=== PATIENT | male | born 1955 | race Two or more races ===

== ENCOUNTER 2018-08-26 13:32 | Emergency (ER) | payer MEDICARE, MEDICAID ==
[~2018-08-26] VITALS: Ht 180.3 cm; Wt 73.0 kg
[2018-08-26 14:19] LABS: CULTURE INDICATED? YES; MICROSCOPIC INDICATED
[2018-08-26] MEDS ORDERED: WYCILLIN 1,200,000 UNITS/2 ML IM ONE (15:30)
[2018-08-26] MEDS ORDERED: BICILLIN-LA 1,200,000 UNITS/2 ML IM ONE (16:00)
[2018-08-26 16:18] VITALS: BP 121/80
== END 2018-08-26 16:20 | disposition home or self-care (01) ==
LOC: ED 15:11
DX: N30.00 Acute cystitis without hematuria (principal)
CPT/HCPCS: 81001; 87077; 87086; 96372; 99284; J0561; 87186

== ENCOUNTER 2020-05-13 00:10 | Emergency (ER) | payer MEDICARE, MEDICAID ==
[~2020-05-13] VITALS: Ht 182.9 cm; Wt 84.0 kg
[2020-05-13] MEDS ORDERED: ASPIRIN 81 MG TABLET CHEW PO ONE (00:30)
[2020-05-13] MEDS ORDERED: ASPIRIN 81 MG TABLET CHEW ONE (00:39)
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
[2020-05-13 00:51] LABS: BASOPHILS # (AUTO) 0.04 x10^3/uL (0-0.1); BASOPHILS % (AUTO) 0 % (0-1); EOSINOPHILS # (AUTO) 0.18 x10^3/uL (0-0.4); EOSINOPHILS % (AUTO) 2 % (1-7); LYMPHOCYTES # (AUTO) 2.28 x10^3/uL (1-3.4); LYMPHOCYTES % (AUTO) 24 % (22-44); MD NO; MEAN CORPUSCULAR HGB CONC 32.8 g/dL (33.2-36.2); MEAN CORPUSCULAR VOLUME 91.7 fL (81-97); MEAN PLATELET VOLUME 8.3 fL (7.4-10.4); MONOCYTES # (AUTO) 0.69 x10^3/uL (0.2-0.8); MONOCYTES % (AUTO) 7 % (2-9); NEUTROPHILS % (AUTO) 66 % (42-75); PLATELET COUNT 264 x10^3/uL (130-400); RED BLOOD COUNT 5.19 x10^6/uL (4.38-5.82); RED CELL DISTRIBUTION WIDTH 14.2 % (9.4-14.8)
[2020-05-13 01:06] LABS: ALBUMIN 3.8 g/dL (3.4-5.0); ANION GAP 6 mmol/L (5-15); CHLORIDE 104 mmol/L (98-107); CREATININE 1.53 mg/dL (0.7-1.3)
[2020-05-13 01:10] LABS: TROPONIN I < 0.015 ng/mL (0.000-0.045)
--- NOTE | 2020-05-13 01:30 | NUR ---
pt resting in [facility], no change in condition, friend at BS, WCTM. waiting for IV access to get CTA.
--- NOTE | 2020-05-13 02:38 | NUR ---
pt in [place], denies additional needs at this time, NAD, no change in condition, US IV being placed for CTA. WCTM.
--- NOTE | 2020-05-13 02:52 | NUR ---
CREDENTIALING ASSISTANT: CALLED CT FOR CTA NOW THAT IV HAS BEEN ESTABLISHED.
--- NOTE | 2020-05-13 02:55 | NUR ---
pt to CT via [facility]. no change in condition at this time.
[2020-05-13] MEDS ORDERED: OMNIPAQUE 350 MG/ML, 75ML BOTTLE ONE (03:09)
--- NOTE | 2020-05-13 03:11 | NUR ---
pt back from CT via gurney, resting in room, appears comfortable. NAD, condition unchanged, additional warm blankets for comfort, WCTM. waiting on CT read.
--- NOTE | 2020-05-13 03:43 | NUR ---
pt resting in gurney, eyes closed, waiting on CT read, no change in condition, WCTM.
[2020-05-13 04:12] VITALS: BP 134/95
--- NOTE | 2020-05-13 04:16 | NUR ---
Patient given discharge instructions and they have confirmed that they understand the instructions. Patient ambulatory with steady gait. NAD, VSS, skin color wnl warm and dry, denies additional questions at this time.
== END 2020-05-13 04:17 | disposition home or self-care (01) ==
LOC: ED 01:38
DX: R07.89 Other chest pain (principal); R91.1 Solitary pulmonary nodule; F17.210 Nicotine dependence, cigarettes, uncomplicated; R00.0 Tachycardia, unspecified
CPT/HCPCS: 36415; 71045; 71275; 80048; 82040; 84484; 85025; 85379; 93005; 99285; 99406; Q9967